=== PATIENT | male | born 1955 | race Caucasian/White ===

== ENCOUNTER → 2016-12-16 | Outpatient (REF) ==
[2016-12-16 12:21] LABS: THYROID STIMULATING HORMONE 2.52 uIU/mL (0.465-4.680)
[2016-12-16 12:55] LABS: PSA-TOTAL 0.46 ng/mL (0-4)
== END ==
LOC: ZLAB.WCH 11:15
PROVIDERS: Nurse Practitioner Family
DX: Z01.89 Encounter for other specified special examinations (principal)
CPT/HCPCS: G0103

== ENCOUNTER → 2018-02-16 | Outpatient (REF) | LOC: ZLAB.WCH 15:31 | DX: Z01.89 Encounter for other specified special examinations (principal) ==

== ENCOUNTER → 2018-02-16 | Outpatient (REF) | LOC: ZLAB.WCH 15:32 | DX: Z01.89 Encounter for other specified special examinations (principal) | CPT/HCPCS: G0103 ==